=== PATIENT | male | born 1975 | race Caucasian/White ===

== ENCOUNTER 2024-10-22 01:41 | Day surgery (SDC) | payer BC, SELFPAY ==
[2024-10-09 13:51] VITALS: BMI 21.2
[2024-10-22 06:28] VITALS: BP 114/72; PULSE 61; RESP 18; TEMP 36.1; O2SAT 100
[2024-10-22] MEDS: LACTATED RINGERS 1,000 ML 150 ML IV CONT (06:35)
--- NOTE | 2024-10-22 06:58 | WPDANESEPPF ---
Anes - Initial Pre Proc Eval Procedure: Operation Date: 10/22/24 07:30 Proposed Procedures p Screening Colonoscopy - Kirill Diaz MD Date/Time: 10/22/24 06:58 Surgeon: Kirill Diaz MD Pre Op Diagnosis: Screening for malignant neoplasm of colon. Patient Data Age: 49 Gender: M Height: 1.85 m Weight: 72.5 kg Last Vital Signs Temp 36.1 C L 10/22/24 06:28 Pulse 61 10/22/24 06:28 Resp 18 10/22/24 06:28 BP 114/72 10/22/24 06:28 Pulse Ox 100 10/22/24 06:28 O2 Del Method Room Air 10/22/24 06:28 Allergies Allergy/AdvReac Type Severity Reaction Status Date / Time No Known Allergies Allergy Mild Verified 10/22/24 06:24 Home Medications ?Medication ?Instructions ?Recorded ?Confirmed ?Type No Home Medications 03/24/22 10/09/24 History Patient hx anesthesia problems: none Family hx anesthesia problems: none Results Review: All pre-operative results and documents have been reviewed as part of the pre-operative evaluation. [facility] Past Medical History Medical History FH: prostate cancer Anxiety FH: colon cancer in relative diagnosed at >50 years old Leukopenia Surgical History Surgical History H/O colonoscopy (~06/2019) Polyps, repeat in 5 years Family History Family History Father Malignant neoplasm of prostate Social History Social History Smoking packs per day: 1 Smoking cigarettes per day: 20.0 Years smoked: 2 Smoking pack-years: 2.00 Smoking status: Former smoker Tobacco type: cigarettes Second hand tobacco smoke exposure: No Smoking end date: 08/22/97 Alcohol intake: current Drinks per week: 6 Substance use: never Substance use type: does not use Living arrangements: with family Spiritual care concerns: No Agree to blood products: Yes Anes - Eval Final PreProcedure Day of Procedure 10/22/24 06:58 Patient weight: normal Heart: regular rate and rhythm Lungs: clear to auscultation Airway: Mallampati scale class II Neurological: alert and oriented Last oral intake: >/= 8 hours ASA classification: II Emergent: no Anesthetic plan: proceed Anesthesia type and monitoring: general GIVS and standard monitoring Results Review: All pre-operative results and documents have been reviewed as part of the pre-operative evaluation. Informed Consent: The patient's anesthetic plan and its attendant risks and benefits were discussed with the patient/family/POA. Questions were solicited and answers provided to the satisfaction of the patient/family/POA.
--- NOTE | 2024-10-22 07:38 | PM.HPGS ---
History of Present Illness History of Present Illness Consent: Risks, benefits, and alternatives have been discussed and questions answered. Patient agrees to proceed with procedure. Chief complaint: Screening for malignant neoplasm of colon. Narrative: Rogelio Fisher is a 49 year old male with colon polyp 5 years ago Review of Systems Review of Systems: All systems reviewed & are unremarkable except as noted in HPI and below PMFSH Past Medical History Medical History (Updated 10/22/24 @ 07:38 by Kirill Diaz MD) Colon polyp FH: prostate cancer Anxiety FH: colon cancer in relative diagnosed at >50 years old Leukopenia Surgical History Surgical History H/O colonoscopy (~06/2019) Polyps, repeat in 5 years Family History Family History Father Malignant neoplasm of prostate Social History Social History Smoking packs per day: 1 Smoking cigarettes per day: 20.0 Years smoked: 2 Smoking pack-years: 2.00 Smoking status: Former smoker Tobacco type: cigarettes Second hand tobacco smoke exposure: No Smoking end date: 08/22/97 Alcohol intake: current Drinks per week: 6 Substance use: never Substance use type: does not use Living arrangements: with family Spiritual care concerns: No Agree to blood products: Yes Meds Home Medications and Allergies Home Medications ?Medication ?Instructions ?Recorded ?Confirmed ?Type No Home Medications 03/24/22 10/09/24 History Allergies Allergy/AdvReac Type Severity Reaction Status Date / Time No Known Allergies Allergy Mild Verified 10/22/24 06:24 Vital Signs Vital Signs - 24 hr 10/22/24 06:28 Temperature 97 F L Pulse Rate 61 Respiratory Rate 18 Blood Pressure 114/72 Pulse Oximetry 100 Oxygen Delivery Room Air Exam Const: General: comfortable and no acute distress HENMT: Face/Nose/Sinus: Normal nares present Eyes: General: appearance normal, both eyes and all related structures Neck: Neck: no JVD Resp: Auscultation: clear to auscultation bilaterally Cardio: Rate: regular rate Rhythm: regular rhythm GI: Inspection: non-distended GI Palp: Yes Soft to palpation Skin: General skin exam: normal color Neuro: General: gait normal Speech: normal speech Extrem: General: normal to inspection Psych: Mental Status: mental status grossly normal Assessment and Plan Assessment and plan (1) Colon polyp: Code(s): K63.5 - Polyp of colon Status: Acute Assessment and Plan: colonoscopy
[2024-10-22 07:41] VITALS: BP 107/55; PULSE 50; RESP 18; O2SAT 100
[2024-10-22 07:51] VITALS: BP 103/62; PULSE 50; RESP 18; O2SAT 100
[2024-10-22 08:01] VITALS: BP 116/79; PULSE 56; RESP 18; O2SAT 100
== END 2024-10-22 08:14 | disposition home or self-care (01) ==
PROVIDERS: PCP Family Medicine; Referring Provider Nurse Practitioner Family; Visit Provider Internal Medicine Gastroenterology
PROC: 0DJD8ZZ Inspection of Lower Intestinal Tract, Via Natural or Artificial Opening Endoscopic (ICD-10-PCS; CPT 45378; principal; 2024-10-22 07:30)
DX: Z12.11 Encounter for screening for malignant neoplasm of colon (principal); K57.30 Diverticulosis of large intestine without perforation or abscess without bleeding; K64.8 Other hemorrhoids; Z86.0100 Personal history of colon polyps, unspecified; Z87.891 Personal history of nicotine dependence
CPT/HCPCS: 45378; J2003; J2704; J7120